=== PATIENT | female | born 1975 | race Caucasian/White ===

== ENCOUNTER → 2016-09-09 | Outpatient (CLI) | payer OTHER | LOC: RAD 11:04 | PROVIDERS: ATTEND Family Medicine | DX: M54.5 Low back pain (principal) | CPT/HCPCS: 72148 ==

== ENCOUNTER → 2017-03-22 | Outpatient (CLI) | payer OTHER ==
[2017-03-23 15:01] LABS: LYME DISEASE IGG AND IGM AB <0.91 ISR (0.00-0.90)
[2017-03-23 15:38] LABS: IMMUNOGLOBULIN A 347 mg/dL (87-352); IMMUNOGLOBULIN G 746 mg/dL (700-1600)
[2017-03-24 15:28] LABS: IMMUNOGLOBULIN M 87 mg/dL (26-217)
== END ==
LOC: OD 07:43
PROVIDERS: ATTEND Specialist
DX: G43.909 Migraine, unspecified, not intractable, without status migrainosus (principal)
CPT/HCPCS: 36415; 82607; 82784; 85652; 86038; 86617; 86618